=== PATIENT | male | born 1975 | race Caucasian/White ===

== ENCOUNTER 2019-01-05 13:25 | Emergency (ER) | payer OTHER ==
[~2019-01-05] VITALS: Ht 170.2 cm; Wt 113.6 kg
[2019-01-05] MEDS ORDERED: LISI10TA4 PO (13:30)
[2019-01-05] MEDS ORDERED: ONDANSETRON 4MG/2ML VIAL (J2405) IV ONE (14:15)
[2019-01-05] MEDS ORDERED: NS 1,000 ML IV ONE (14:15)
[2019-01-05] MEDS ORDERED: KETOROLAC 30 MG/ML VIAL (J1885) IV ONE (14:15)
[2019-01-05 15:09] LABS: BASO % 0.2 % (0.0-1.0); HEMATOCRIT 44.6 % (42.0-52.0); HEMOGLOBIN 15.1 g/dl (13.5-17.5); LYMPH # 1.2 10^3/uL (1.5-4.5); LYMPH % 6.6 % (24.0-44.0); MEAN CORPUSCULAR HEMOGLOBIN 29.8 pg (27.0-33.0); MEAN CORPUSCULAR HGB CONC 33.9 g/dl (32.0-36.5); MONO # 0.5 10^3/uL (0.0-0.8); MONO % 2.7 % (0.0-5.0); NEUTROPHILS # 15.7 10^3/uL (1.8-7.7); PLATELET COUNT, AUTOMATED 300 10^3/uL (150-450); RED BLOOD COUNT 5.07 10^6/uL (4.30-6.10); WHITE BLOOD COUNT 17.5 10^3/uL (4.0-10.0)
--- NOTE | 2019-01-05 15:09 | REP ---
CT abdomen and pelvis without IV or oral contrast: History: Left flank pain. Renal colic. No comparison study. CT findings: Preliminary digital guest service aide radiograph is unremarkable. There is linear fibrosis in the right middle lobe and right lower lobe. Lung bases are otherwise clear. The liver and the spleen are normal in size and homogeneous in texture. There is evidence of minimal fatty infiltration of the liver. No focal liver lesion is seen. No abnormality is noted in the gallbladder. The pancreas is unremarkable. There is an accessory splenule in the left upper quadrant. No adrenal lesion is seen on either side. There is left-sided hydronephrosis and hydroureter due to a 3 mm calculus in the ureterovesical junction on the left side. There is peripelvic and periureteral fat streaking. There is a tiny intrarenal calculus at the right mid pole level. No right-sided hydronephrosis. No other intrarenal calculus is observed. No hydronephrosis is seen on the right. No bladder calculus is observed. Seminal vesicles and prostate are unremarkable. Normal appendix is seen in the right lower quadrant. No abdominal wall defect is observed. No bony destructive lesion is appreciated. Impression: 3 mm obstructing calculus in the distal ureter at the left ureterovesical junction producing moderate hydronephrosis and some periureteral edema. There is a tiny intrarenal calculus in the right mid pole. No right-sided hydronephrosis. Minimal fatty infiltration of the liver. Otherwise negative. Electronically Signed by Landon Merino MD 01/05/2019 05:22 P
[2019-01-05 15:18] LABS: ALBUMIN 4.1 GM/DL (3.2-5.2); ALT/SGPT 23 U/L (12-78); BILIRUBIN,DIRECT < 0.1 MG/DL (0.0-0.2); BILIRUBIN,TOTAL 0.3 MG/DL (0.2-1.0); BLOOD UREA NITROGEN 11 MG/DL (7-18); CARBON DIOXIDE LEVEL 28 MEQ/L (21-32); CHLORIDE LEVEL 105 MEQ/L (98-107); CREATININE FOR GFR 1.41 MG/DL (0.70-1.30); GLUCOSE, FASTING 141 MG/DL (70-100); LIPASE 142 U/L (73-393); POTASSIUM SERUM 5.1 MEQ/L (3.5-5.1); SODIUM LEVEL 140 MEQ/L (136-145); TOTAL PROTEIN 7.5 GM/DL (6.4-8.2)
[2019-01-05] MEDS ORDERED: CIPROFLOXACIN 500 MG TAB PO ONE (15:30)
[2019-01-05] MEDS ORDERED: ONDA4TAB6 PO ×2 (15:33→16:29)
[2019-01-05] MEDS ORDERED: IBUP-1022 PO ×2 (15:33→16:29)
[2019-01-05] MEDS ORDERED: CIPR-250 PO ×2 (15:33→16:29)
[2019-01-05] MEDS ORDERED: FLOM0.4C39 PO ×2 (15:33→16:29)
[2019-01-05 16:17] VITALS: BP 150/84
== END 2019-01-05 16:29 | disposition home or self-care (01) ==
LOC: M ED 13:25
DX: N20.1 Calculus of ureter (principal); N13.1 Hydronephrosis with ureteral stricture, not elsewhere classified; N39.0 Urinary tract infection, site not specified; R82.71 Bacteriuria; K76.0 Fatty (change of) liver, not elsewhere classified; I10 Essential (primary) hypertension; Z79.899 Other long term (current) drug therapy; F17.210 Nicotine dependence, cigarettes, uncomplicated
CPT/HCPCS: 36415; 74176; 80048; 80076; 81001; 83690; 85025; 87086; 96361; 96374; 96375; 99284; J1885; J2405